=== PATIENT | female | born 1950 | race Hispanic/Latino ===

== ENCOUNTER 2024-08-04 09:09 | Observation (INO) | payer MEDICARE ==
[2024-08-01 12:00] LABS: BASOPHILS % 0.2 % (0.0-1.0); EOSINOPHILS # (AUTO) 0.1 (0.0-0.4); HEMOGLOBIN 12.3 g/dL (12.0-16.0); LYMPHOCYTES # (AUTO) 1.8 (1.0-3.2); LYMPHOCYTES % 21.5 % (18.0-39.1); MEAN CORPUSCULAR HEMOGLOBIN 31.3 pg (28-32); MEAN CORPUSCULAR HGB CONC 33.2 g/dL (31-35); MEAN CORPUSCULAR VOLUME 94.1 fL (81-99); MONOCYTES # (AUTO) 0.6 (0.2-0.8); MONOCYTES % 7.1 % (4.4-11.3); NEUTROPHILS # (AUTO) 5.9 (2.1-6.9); NEUTROPHILS % 69.7 % (38.7-80.0); PLATELET COUNT 180 x10e3/uL (140-360); RED BLOOD COUNT 3.93 x10e6/uL (3.6-5.1); RED CELL DISTRIBUTION WIDTH 12.8 % (11.7-14.4)
[~2024-08-04] VITALS: Ht 157.5 cm; Wt 81.8 kg
[2024-08-04] MEDS: CEFAZOLIN SODIUM 2 GM ONE (08:02)
[2024-08-04] MEDS: CELECOXIB 200 MG CAP ONE (08:26)
[2024-08-04] MEDS: LACTATED RINGER'S 1,000 ML ONE (08:26)
[2024-08-04] MEDS: DEXAMETHASONE SOD PHOS 10 MG/1 ML VIAL ONE (08:27)
[2024-08-04] MEDS: GABAPENTIN 300 MG CAP ONE (08:27)
[~2024-08-04 09:09] MED LIST: AMLODIPINE BESYL5 MG PO; BYSTOLIC10 MG PO; CRESTOR40 MG PO; LISINOPRIL-HCT1 EACH PO; METFORMIN HCL500 M2 PO; OMEGA 3 1,0001 EACH PO; OYSTER SHELL C1 EA12 PO; ROPIVACAINE/EPI/CLONIDINE/KET 50 ML SYRINGE INJ ONE
[2024-08-04] MEDS ORDERED: BUPIVACAINE 0.5%/EPI 30 ML SDV INJ ONE (09:13)
[2024-08-04] MEDS ORDERED: FENTANYL CITRATE/PF 100MCG/2 ML INJ ONE ×2 (09:13→09:23)
[2024-08-04] MEDS ORDERED: MIDAZOLAM HCL 2 MG/2 ML VIAL ONE (09:14)
[2024-08-04] MEDS ORDERED: PROPOFOL IV EMULSION 10 MG/ML 20 ML VIAL ONE (09:24)
[2024-08-04] MEDS ORDERED: SEVOFLURANE INHAL SOLN 250 ML PEN BTL ONE (09:24)
[2024-08-04] MEDS ORDERED: LIDOCAINE HCL 2% LOCAL INJ 5 ML SDV VIAL INJ ONE (09:24)
[2024-08-04] MEDS ORDERED: ACETAMINOPHEN 1000 MG/100 ML 100 ML IV ONE (10:09)
[2024-08-04] MEDS ORDERED: FAMOTIDINE 20 MG/2 ML VIAL IV ONE (10:13)
[2024-08-04] MEDS ORDERED: ONDANSETRON HCL INJ 2MG/ML 2ML 2 MG/ML VIAL ONE (10:13)
[2024-08-04] MEDS ORDERED: GLYCOPYRROLATE INJ 0.2 MG/ML VIAL ONE (10:39)
[2024-08-04] MEDS ORDERED: HYDROCODONE/APAP 7.5MG-325MG 1 EA TAB PO PRN (11:15)
[2024-08-04] MEDS ORDERED: DIPHENHYDRAMINE HCL INJ 50 MG/ML VIAL IV PRN (11:15)
[2024-08-04] MEDS ORDERED: HYDROCODONE/APAP 5MG-325MG TAB PO PRN (11:15)
[2024-08-04] MEDS ORDERED: DOCUSATE SODIUM 100 MG CAP PO PRN (11:15)
[2024-08-04] MEDS ORDERED: ONDANSETRON HCL INJ 2MG/ML 2ML 2 MG/ML VIAL IV PRN (11:15)
[2024-08-04 17:43] VITALS: BP 134/68; PULSE 81; RESP 18; TEMP 97.6; O2SAT 98
[2024-08-04 17:52] VITALS: PULSE 62; O2SAT 94
[2024-08-04 17:57] VITALS: BP 134/68; PULSE 62; RESP 18; TEMP 97.6; O2SAT 94
[2024-08-04] MEDS: SODIUM CHLORIDE 0.9% 1000ML 1,000 ML IV SCH (18:39)
[2024-08-04] MEDS: SODIUM CHLORIDE 0.9% 1000ML 1,000 ML ONE (18:39)
[2024-08-04 20:00] VITALS: BP 141/75; PULSE 83; RESP 18; TEMP 97.7; O2SAT 100
[2024-08-04] MEDS: CELECOXIB 200 MG CAP PO SCH (20:36)
[2024-08-04] MEDS: ASPIRIN 325 MG TAB PO SCH (20:36)
[2024-08-04 22:22] VITALS: BP 141/75; PULSE 83; RESP 18; TEMP 97.7; O2SAT 100
[2024-08-05] VITALS (7 sets, daily range): BP systolic 128–166; BP diastolic 58–74; PULSE 69–85; RESP 18–20; TEMP 97.9–98.3; O2SAT 95–100
[2024-08-05 05:28] LABS: HEMATOCRIT 32.3 % (34.2-44.1); HEMOGLOBIN 10.9 g/dL (12.0-16.0)
[2024-08-05] MEDS: METFORMIN HCL 500 MG TAB CR PO SCH (08:49)
[2024-08-05] MEDS: NEBIVOLOL 10 MG TAB PO SCH (08:50)
[2024-08-05] MEDS ORDERED: ASPIRIN81 MG PO (10:50)
[2024-08-05] MEDS ORDERED: ACETAMINOPHEN 1000 MG/100 ML IV PRN (11:15)
[2024-08-05] MEDS ORDERED: AMLODIPINE BESYLATE 5 MG TAB PO SCH (21:00)
[2024-08-05] MEDS ORDERED: CRESTOR 10MG PO SCH (21:00)
== END 2024-08-05 21:19 | disposition home health service (06) ==
LOC: OR 09:09 → PACU V 16:14 → MED/SURG 17:27
PROVIDERS: ADMIT Specialist; ATTEND Specialist
DX: M17.12 Unilateral primary osteoarthritis, left knee (principal); D64.9 Anemia, unspecified; I10 Essential (primary) hypertension; E11.9 Type 2 diabetes mellitus without complications; Z79.84 Long term (current) use of oral hypoglycemic drugs; E78.5 Hyperlipidemia, unspecified; E66.9 Obesity, unspecified; Z68.33 Body mass index [BMI] 33.0-33.9, adult; Z01.812 Encounter for preprocedural laboratory examination; Z01.818 Encounter for other preprocedural examination
CPT/HCPCS: 27447; 36415 ×3; 71046; 73560; 82948 ×2; 85014; 85018; 85025; 86850 ×2; 86900 ×2; 94799 ×2; 97116 ×2; 97162; 97530 ×2; C1713 ×2; C1776 ×3; G0378 ×2; J0131; J0690 ×2; J1100; J1308; J2003; J2250; J2405; J2704; J3010; J7030; J7121